=== PATIENT | female | born 1980 | race American Indian/Alaskan Native ===

== ENCOUNTER 2016-11-10 10:06 | Emergency (ER) | payer OTHER ==
--- NOTE | 2016-11-10 10:11 | ED PDOC ---
HPI: Dental Pain/Injury Time Seen by Provider: 11/10/16 10:11 Chief Complaint (Nursing): Dental Pain Chief Complaint (Provider): dental pain History Per: Patient Additional Complaint(s): 36-year-old female with no past medical history presents to emergency department with dental pain 3 days. Patient states that her posterior molar tooth to the right lower mandible is protruding through her gums causing pain. She is taking Tylenol and Motrin which has provided pain relief. She denies facial swelling, denies fever or chills. Patient is tolerating liquids and solids. Past Medical History Reviewed: Historical Data, Nursing Documentation, Vital Signs - Medical History PMH: No Chronic Diseases - Surgical History Surgical History: (x 2) - Family History Family History: States: No Known Family Hx - Living Arrangements Living Arrangements: With Family - Social History Current smoker - smoking cessation education provided: No Alcohol: None Drugs: Denies - Home Medications Home Medications: Ambulatory Orders Medication Instructions Recorded Ibuprofen [Motrin] 600 mg PO Q6 PRN #15 tab 11/10/16 Lidocaine 2% Viscous 10 ml PO Q3H PRN #200 ml 11/10/16 - Allergies Allergies/Adverse Reactions: Allergies Allergy/AdvReac Type Severity Reaction Status Date / Time No Known Allergies Allergy Verified 11/10/16 10:07 Review of Systems ROS Statement: Except As Marked, All Systems Reviewed And Found Negative Constitutional: Negative for: Fever, Chills ENT: Positive for: Other (dental pain for 3 days) Gastrointestinal: Negative for: Nausea, Vomiting Physical Exam - Reviewed Nursing Documentation Reviewed: Yes Vital Signs Reviewed: Yes - Physical Exam Appears: Positive for: Well, Non-toxic, No Acute Distress Skin: Negative for: Rash Eye Exam: Positive for: Normal appearance ENT: Positive for: Other (right lower mandible posterior molar tooth protruding through gingiva, no abscess or infection noted, overal dentition intact. Airway patent, uvula midline) Neck: Positive for: Normal Neurologic/Psych: Positive for: Alert, Oriented - Laboratory Results Urine POC: Negative - ECG Pulse Ox Interpretation: Normal Medical Decision Making Medical Decision Makin36 year old with dental pain. Plan: test PO motrin Patient was instructed to alternate tylenol and motrin for pain control. Rx given for motrin and viscous lidocaine. Patient was instructed to follow up [facility] with dentist. Disposition - Clinical Impression Clinical Impression: Pain, dental - Patient ED Disposition Is Patient to be Admitted: No Counseled Patient/Family Regarding: Diagnosis, Need For Followup, Rx Given - Disposition Referrals: [facility] [Outside] Disposition: Routine/Home Disposition Time: 10:21 Condition: STABLE Additional Instructions: Alternate tylenol every 4 hrs and motrin every 6 hrs. Use prescribed lidocaine as directed as needed for pain. Follow up Y[facility] with dentist. Prescriptions: Ibuprofen [Motrin] 600 mg PO Q6 PRN #15 tab PRN Reason: Pain, Moderate (4-7) Lidocaine 2% Viscous 10 ml PO Q3H PRN #200 ml PRN Reason: Pain, Moderate (4-7) Instructions: Toothache (ED)
[2016-11-10 10:39] VITALS: BP 126/78; PULSE 78; RESP 20; TEMP 97.6; O2SAT 98
== END 2016-11-10 10:39 | disposition home or self-care (01) ==
LOC: H.ER 10:06
DX: K08.9 Disorder of teeth and supporting structures, unspecified (principal)